=== PATIENT | male | born 1980 | race American Indian/Alaskan Native ===

== ENCOUNTER 2017-08-21 10:48 | Inpatient (IN) | payer OTHER ==
[2017-08-21] MEDS ORDERED: Sodium Chloride 0.9% 1,000 ML IV SCH (12:00)
--- NOTE | 2017-08-21 13:14 | EDM.PDOC ---
ED HPI GENERAL MEDICAL PROBLEM - General Chief Complaint: Behavioral/Psych Stated Complaint: CHEST PAIN Time Seen by Provider: 08/21/17 13:07 Source of Information: Reports: Patient History Limitations: Reports: No Limitations - History of Present Illness INITIAL COMMENTS - FREE TEXT/NARRATIVE: c/o palpitations anxious, pt reports he drinks a gallon of vodka mixed 1/2 and 1/2 with koolaid daily, family member reports he has not been drinking in past 7d altho he had one drink last night no pain, no sob - Related Data Allergies Allergy/AdvReac Type Severity Reaction Status Date / Time Penicillins Allergy Cannot Verified 08/21/17 11:09 Remember Home Meds: Home Meds . [Unable to Verify Home Med List] 08/21/17 [History] ED ROS GENERAL - Review of Systems Review Of Systems: See Below Constitutional: Denies: Fever, Chills HEENT: Reports: No Symptoms Respiratory: Reports: No Symptoms Cardiovascular: Reports: No Symptoms Endocrine: Reports: No Symptoms GI/Abdominal: Reports: No Symptoms : Reports: No Symptoms Musculoskeletal: Reports: No Symptoms Skin: Reports: No Symptoms Neurological: Reports: Paresthesia, Tingling, Tremors Psychiatric: Reports: Anxiety, Confusion Hematologic/Lymphatic: Reports: No Symptoms Immunologic: Reports: No Symptoms ED EXAM, GENERAL - Physical Exam Exam: See Below Exam Limited By: No Limitations General Appearance: Alert, WD/WN, Anxious, Other (quite anxious, restless, initial HR 115 dec'd to 102 after fluids) Eye Exam: Bilateral Eye: Normal Inspection, PERRL Head: Atraumatic, Normocephalic Neck: Normal Inspection, Supple, Non-Tender, Full Range of Motion Respiratory/Chest: No Respiratory Distress, Lungs Clear, Normal Breath Sounds, No Accessory Muscle Use, Chest Non-Tender Cardiovascular: No Edema, No Gallop, No JVD, No Rub, Other GI/Abdominal: Normal Bowel Sounds, Soft, Non-Tender, No Distention Back Exam: Normal Inspection, Full Range of Motion, NT Extremities: Normal Inspection, Normal Range of Motion, Non-Tender Neurological: Alert, Normal Gait, No Motor/Sensory Deficits, Other ( intermittent tremors) Psychiatric: Anxious Skin Exam: Warm, Dry, Intact, Normal Color, No Rash Lymphatic: No Adenopathy Course - Vital Signs Last Recorded V/S: Last Vital Signs Temp 36.2 C 08/21/17 11:12 Pulse 97 08/21/17 11:12 Resp 16 08/21/17 11:12 BP 159/79 H 08/21/17 11:12 Pulse Ox 100 08/21/17 11:12 - Orders/Labs/Meds Orders: Active Orders 24 hr Category Date Time Status DRUG SCREEN, URINE ALERE [URCHEM] Stat Lab 08/21/17 13:25 Received UA W/MICROSCOPIC [URIN] Stat Lab 08/21/17 13:25 Received Potassium Chloride [Klor-Con M20] Med 08/21/17 13:36 Once 40 meq PO ONETIME ONE Sodium Chloride 0.9% [Normal Saline] 1,000 ml Med 08/21/17 13:36 Ordered IV .BOLUS Sodium Chloride 0.9% [Normal Saline] 1,000 ml Med 08/21/17 12:00 Ordered IV ASDIRECTED EKG 12 Lead [EK] Routine Ther 08/21/17 11:59 Ordered Medication Orders Sodium Chloride (Normal Saline) 1,000 mls @ 999 mls/hr IV ASDIRECTED [facility] Labs: Laboratory Tests 08/21/17 08/21/17 08/21/17 Range/Units 12:15 12:15 12:15 WBC 6.4 (4.5-12.0) X10-3/uL RBC 4.83 (4.30-5.75) x10(6)uL Hgb 15.6 H (11.5-15.5) g/dL Hct 45.6 (30.0-51.3) % MCV 94.6 (80-96) fL MCH 32.4 (27.7-33.6) pg MCHC 34.2 (32.2-35.4) g/dL RDW 13.5 (11.5-15.5) % Plt Count 85 L (125-369) X10(3)uL MPV 7.3 L (7.4-10.4) fL Neut % (Auto) 68.8 (46-82) % Lymph % (Auto) 17.7 (13-37) % Greenlee % (Auto) 11.4 (4-12) % Eos % (Auto) 1 (1.0-5.0) % Baso % (Auto) 1 (0-2) % Neut # (Auto) 4.5 (1.6-8.3) # Lymph # (Auto) 1.1 (0.6-5.0) # Greenlee # (Auto) 0.7 (0.0-1.3) # Eos # (Auto) 0.0 (0.0-0.8) # Baso # (Auto) 0.1 (0.0-0.2) # Sodium 130 L (135-145) mmol/L Potassium 2.9 L (3.5-5.3) mmol/L Chloride 88 L* (100-110) mmol/L Carbon Dioxide 29 (21-32) mmol/L BUN 15 (7-18) mg/dL Creatinine 0.9 (0.70-1.30) mg/dL Est Cr Clr Drug Dosing TNP Estimated GFR (MDRD) > 60 (>60) BUN/Creatinine Ratio 16.7 (9-20) Glucose 108 (80-116) mg/dL Calcium 9.7 (8.6-10.2) mg/dL Magnesium 1.6 L (1.8-2.5) mg/dL Total Bilirubin 1.7 H (0.1-1.3) mg/dL AST 116 H (5-25) IU/L ALT 121 H (12-36) U/L Alkaline Phosphatase 128 H (56-112) IU/L Troponin I < 0.017 L (<0.017-0.056) ng/mL C-Reactive Protein 0.5 (0.5-0.9) mg/dL Total Protein 7.9 (6.0-8.0) g/dL Albumin 3.8 (3.5-5.2) g/dL Globulin 4.1 g/dL Albumin/Globulin Ratio 0.9 Ethyl Alcohol (<0.03) % 08/21/17 Range/Units 12:15 WBC (4.5-12.0) X10-3/uL RBC (4.30-5.75) x10(6)uL Hgb (11.5-15.5) g/dL Hct (30.0-51.3) % MCV (80-96) fL MCH (27.7-33.6) pg MCHC (32.2-35.4) g/dL RDW (11.5-15.5) % Plt Count (125-369) X10(3)uL MPV (7.4-10.4) fL Neut % (Auto) (46-82) % Lymph % (Auto) (13-37) % Greenlee % (Auto) (4-12) % Eos % (Auto) (1.0-5.0) % Baso % (Auto) (0-2) % Neut # (Auto) (1.6-8.3) # Lymph # (Auto) (0.6-5.0) # Greenlee # (Auto) (0.0-1.3) # Eos # (Auto) (0.0-0.8) # Baso # (Auto) (0.0-0.2) # Sodium (135-145) mmol/L Potassium (3.5-5.3) mmol/L Chloride (100-110) mmol/L Carbon Dioxide (21-32) mmol/L BUN (7-18) mg/dL Creatinine (0.70-1.30) mg/dL Est Cr Clr Drug Dosing Estimated GFR (MDRD) (>60) BUN/Creatinine Ratio (9-20) Glucose (80-116) mg/dL Calcium (8.6-10.2) mg/dL Magnesium (1.8-2.5) mg/dL Total Bilirubin (0.1-1.3) mg/dL AST (5-25) IU/L ALT (12-36) U/L Alkaline Phosphatase (56-112) IU/L Troponin I (<0.017-0.056) ng/mL C-Reactive Protein (0.5-0.9) mg/dL Total Protein (6.0-8.0) g/dL Albumin (3.5-5.2) g/dL Globulin g/dL Albumin/Globulin Ratio Ethyl Alcohol < 0.03 (<0.03) % Meds: Medications Generic Name Dose Route Start Last Admin Trade Name Freq PRN Reason Stop Dose Admin Sodium Chloride 1,000 mls @ 999 mls/hr 08/21/17 12:00 Normal Saline IV ASDIRECTED VALERIE - Radiology Interpretation Free Text/Narrative:: labs reviewed, pt meets medical criteria for admission - Re-Assessments/Exams Free Text/Narrative Re-Assessment/Exam: 08/21/17 13:37 d/w Dr Krystle Castanon Departure - Departure Time of Disposition: 13:16 Disposition: Admitted As Inpatient 68 Condition: Good Clinical Impression: Alcohol withdrawal syndrome, Alcohol abuse, Hyponatremia, Hypokalemia, Hypomagnesemia, Dehydration, Prolonged Q-T interval on ECG, Delirium, Occasional tremors - Discharge Information Referrals: PCP,None [Primary Care Provider] - Forms: ED Department Discharge - My Orders Last 24 Hours: My Active Orders 08/21/17 11:59 EKG 12 Lead [EK] Routine 08/21/17 12:00 Sodium Chloride 0.9% [Normal Saline] 1,000 ml IV ASDIRECTED 08/21/17 13:25 DRUG SCREEN, URINE ALERE [URCHEM] Stat UA W/MICROSCOPIC [URIN] Stat 08/21/17 13:36 Potassium Chloride [Klor-Con M20] 40 meq PO ONETIME ONE Sodium Chloride 0.9% [Normal Saline] 1,000 ml IV .BOLUS - Assessment/Plan Last 24 Hours: My Active Orders 08/21/17 11:59 EKG 12 Lead [EK] Routine 08/21/17 12:00 Sodium Chloride 0.9% [Normal Saline] 1,000 ml IV ASDIRECTED 08/21/17 13:25 DRUG SCREEN, URINE ALERE [URCHEM] Stat UA W/MICROSCOPIC [URIN] Stat 08/21/17 13:36 Potassium Chloride [Klor-Con M20] 40 meq PO ONETIME ONE Sodium Chloride 0.9% [Normal Saline] 1,000 ml IV .BOLUS
[2017-08-21] MEDS ORDERED: Potassium Chloride 20 MEQ Tab.ER PO ONE (13:36)
[2017-08-21] MEDS ORDERED: Sodium Chloride 0.9% 1,000 ML IV ONE (13:36)
[2017-08-21] MEDS ORDERED: LORazepam 1 MG Tab PO ONE (14:00)
[2017-08-21] MEDS ORDERED: Acetaminophen 325 MG Tab PO PRN (15:14)
[2017-08-21] MEDS ORDERED: Docusate Sodium 100 MG Cap PO PRN (15:14)
[2017-08-21] MEDS ORDERED: Promethazine 25 MG Tab PO PRN (15:14)
[2017-08-21] MEDS ORDERED: Magnesium Oxide 400 MG Tab PO SCH (15:30)
[2017-08-21] MEDS ORDERED: Nicotine 14 MG/24 Hr Patch TRDERM SCH (15:30)
[2017-08-21] MEDS ORDERED: Nicotine 21 MG/24 Hr Patch TRDERM SCH (15:38)
[2017-08-21] MEDS: Sodium Chloride 0.9% 10 ML Syringe FLUSH PRN ×4 (16:06→23:19)
[2017-08-21] MEDS: Nicotine 21 MG/24 Hr Patch TRDERM SCH (16:08)
[2017-08-21] MEDS: Thiamine 100 MG Tab PO SCH (16:14)
[2017-08-21] MEDS: Folic Acid 1 MG Tab PO SCH (16:14)
[2017-08-21] MEDS: Pantoprazole 40 MG Tab.CR PO SCH (16:14)
[2017-08-21] MEDS ORDERED: FLU Vacc QS 2017-18 (36mos UP)/PF 60 MCG/0.5 ML Syringe IM ONE (17:15)
[2017-08-21] MEDS: LORazepam 1 MG Tab PO SCH ×5 (18:19→21:02)
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
[2017-08-21] MEDS: Metoprolol Succinate 25 MG Tab.ER PO SCH (20:06)
[2017-08-21] MEDS ORDERED: diphenhydrAMINE 50 MG/ML SDV IVPUSH ONE (22:48)
[2017-08-21] MEDS ORDERED: LORazepam 2 MG/ML SDV IVPUSH PRN (22:48)
[2017-08-21] MEDS: LORazepam 2 MG/ML SDV IVPUSH PRN (23:03)
[2017-08-22] MEDS: LORazepam 2 MG/ML SDV IVPUSH PRN ×16 (00:06→22:59)
[2017-08-22] MEDS ORDERED: Haloperidol Lactate 5 MG/ML SDV IM ONE (00:40)
[2017-08-22] MEDS ORDERED: LORazepam 20 MG in Dextrose 5% in Water 90 ML IV SCH ×2 (00:45)
[2017-08-22] MEDS ORDERED: OLANZapine 10 MG Vial IM STA (00:49)
[2017-08-22] MEDS ORDERED: LORazepam 2 MG/ML SDV IM ONE (02:22)
[2017-08-22] MEDS: Sodium Chloride 0.9% 2,000 ML IV ONE ×2 (03:16→04:24)
[2017-08-22] MEDS: Sodium Chloride 0.9% 10 ML Syringe FLUSH PRN ×14 (05:31→23:00)
--- NOTE | 2017-08-22 07:56 | PCM.PN ---
- General Info Date of Service: 08/22/17 Subjective Update: The patient is a 36-year-old male currently on hospital day #2 for acute alcohol withdrawal. Last drink was early yesterday morning so just over 24 hours out. He had a rough night. Very agitated and confused. Became quite tachycardic. Received Haldol, Benadryl, 2 L normal saline, and multiple doses of Ativan. Ultimately soft restraints were applied and the patient is awake and restrained this morning. He is disoriented and appears to be hallucinating, but he is calm and able to respond to soothing techniques by myself and the nurse. Had a dose of Zyprexa as well. Has had 12 mg Ativan IV, 2 mg PO and 2 mg IM for total of 16 mg in the last 24 hours. - Patient Data Vitals - Most Recent: Last Vital Signs Temp 36.7 C 08/22/17 05:00 Pulse 122 H 08/22/17 05:00 Resp 20 08/22/17 05:00 BP 155/99 H 08/22/17 05:00 Pulse Ox 99 08/22/17 05:00 Weight - Most Recent: 63.14 kg I&O - Last 24 Hours: Intake & Output 08/21/17 08/22/17 08/22/17 22:59 06:59 14:59 Intake Total 2550 2100 Balance 2550 2100 Lab Results Last 24 Hours: Laboratory Results - last 24 hr 08/22/17 08/22/17 08/22/17 Range/Units 06:20 06:20 06:20 WBC 7.2 (4.5-12.0) X10-3/uL RBC 3.74 L (4.30-5.75) x10(6)uL Hgb 12.1 D (11.5-15.5) g/dL Hct 35.4 D (30.0-51.3) % MCV 94.5 (80-96) fL MCH 32.3 (27.7-33.6) pg MCHC 34.1 (32.2-35.4) g/dL RDW 14.2 (11.5-15.5) % Plt Count 81 L (125-369) X10(3)uL MPV 7.6 (7.4-10.4) fL Neut % (Auto) 66.4 (46-82) % Lymph % (Auto) 17.8 (13-37) % [place] % (Auto) 14.1 H (4-12) % Eos % (Auto) 1 (1.0-5.0) % Baso % (Auto) 1 (0-2) % Neut # (Auto) 4.8 (1.6-8.3) # Lymph # (Auto) 1.3 (0.6-5.0) # [place] # (Auto) 1.0 (0.0-1.3) # Eos # (Auto) 0.1 (0.0-0.8) # Baso # (Auto) 0.0 (0.0-0.2) # PT 10.5 (8.7-11.1) INR 1.04 (0.89-1.13) APTT 25.9 (24.4-33.2) SECONDS Sodium 141 D (135-145) mmol/L Potassium 2.9 L (3.5-5.3) mmol/L Chloride 105 D (100-110) mmol/L Carbon Dioxide 24 (21-32) mmol/L BUN 13 (7-18) mg/dL Creatinine 0.7 (0.70-1.30) mg/dL Est Cr Clr Drug Dosing 132.79 mL/min Estimated GFR (MDRD) > 60 (>60) BUN/Creatinine Ratio 18.6 (9-20) Glucose 76 L (80-116) mg/dL Calcium 8.1 L (8.6-10.2) mg/dL Phosphorus 2.3 L (2.6-4.6) mg/dL Magnesium 1.6 L (1.8-2.5) mg/dL Total Bilirubin 0.9 (0.1-1.3) mg/dL AST 73 H D (5-25) IU/L ALT 84 H D (12-36) U/L Alkaline Phosphatase 96 (56-112) IU/L Total Protein 6.0 (6.0-8.0) g/dL Albumin 3.0 L (3.5-5.2) g/dL Globulin 3.0 g/dL Albumin/Globulin Ratio 1.0 Med Orders - Current: Current Medications Acetaminophen (Tylenol) 650 mg PO Q4H PRN PRN Reason: Pain (Mild 1-3)/fever Docusate Sodium (Colace) 100 mg PO BID PRN PRN Reason: Constipation Folic Acid (Folic Acid) 1 mg PO DAILY [facility] Last Admin: 08/21/17 16:14 Dose: 1 mg Sodium Chloride (Normal Saline) 1,000 mls @ 999 mls/hr IV ASDIRECTED VALERIE Last Admin: 08/21/17 12:45 Dose: 999 mls/hr Lorazepam (Ativan) 0 mg PO ASDIRECTED VALERIE PRN Reason: Protocol Last Admin: 08/21/17 21:02 Dose: 1 mg Lorazepam (Ativan) 1 - 3 mg IVPUSH Q1H PRN PRN Reason: Anxiety Last Admin: 08/22/17 07:42 Dose: 2 mg Magnesium Oxide (Magnesium Oxide) 400 mg PO BID [facility] Metoprolol Succinate (Toprol Xl) 25 mg PO BEDTIME [facility] Last Admin: 08/21/17 20:06 Dose: 25 mg Multivitamins/Minerals/Vitamin C (Tab-A-Odilia) 1 tab PO DAILY [facility] Nicotine (Habitrol) 21 mg TRDERM Q24H [facility] Last Admin: 08/21/17 16:08 Dose: 21 mg Pantoprazole Sodium (Protonix) 40 mg PO DAILY [facility] Last Admin: 08/21/17 16:14 Dose: 40 mg Potassium Chloride (Klor-Con M20) 20 meq PO TID [facility] Potassium Phosphate (K-Phos Original) 500 mg PO DAILY [facility] Promethazine HCl (Phenergan) 25 mg PO Q6H PRN PRN Reason: nausea, able to take PO Sodium Chloride (Saline Flush) 10 ml FLUSH ASDIRECTED PRN PRN Reason: Keep Vein Open Last Admin: 08/22/17 06:03 Dose: 10 ml Thiamine HCl (Vitamin B-1) 100 mg PO DAILY [facility] Last Admin: 08/21/17 16:14 Dose: 100 mg Discontinued Medications Diphenhydramine HCl (Benadryl) 50 mg IVPUSH ONETIME ONE Stop: 08/21/17 22:49 Last Admin: 08/21/17 23:51 Dose: 50 mg Haloperidol Lactate (Haldol) 5 mg IM ONETIME ONE Stop: 08/22/17 00:41 Last Admin: 08/22/17 00:44 Dose: 5 mg Sodium Chloride (Normal Saline) 1,000 mls @ 999 mls/hr IV .BOLUS ONE Stop: 08/21/17 14:36 Last Admin: 08/21/17 13:45 Dose: 999 mls/hr Lorazepam 20 mg/ Dextrose/ (Water) 100 mls @ 2.5 mls/hr IV TITRATE VALERIE; 0.5 MG/ HR PRN Reason: Protocol Sodium Chloride (Normal Saline) 2,000 mls @ 999 mls/hr IV .BOLUS ONE Stop: 08/22/17 05:08 Last Admin: 08/22/17 04:24 Dose: 999 mls/hr Influenza Virus Vaccine (Pharmacy To Dose - Influenza Vaccine) 1 each IM ONETIME ONE Stop: 08/21/17 17:14 Influenza Virus Vaccine (Fluzone Quad [id number]) 60 mcg IM .ONCE ONE Stop: 08/21/17 17:16 Lorazepam (Ativan) 1 mg PO ONETIME ONE Stop: 08/21/17 14:01 Last Admin: 08/21/17 14:00 Dose: 1 mg Lorazepam (Ativan) 1 mg IVPUSH Q1H PRN PRN Reason: Anxiety Lorazepam (Ativan) 2 mg IM ONETIME ONE Stop: 08/22/17 02:23 Last Admin: 08/22/17 02:34 Dose: 2 mg Magnesium Oxide (Magnesium Oxide) 400 mg PO DAILY [facility] Last Admin: 08/21/17 16:14 Dose: 400 mg Nicotine (Habitrol) 21 mg TRDERM DAILY [facility] Last Admin: 08/21/17 18:10 Dose: Not Given Olanzapine (Zyprexa) 5 mg IM ONETIME STA Stop: 08/22/17 00:50 Last Admin: 08/22/17 01:21 Dose: 5 mg Potassium Chloride (Klor-Con M20) 40 meq PO ONETIME ONE Stop: 08/21/17 13:37 Last Admin: 08/21/17 13:50 Dose: 40 meq - Exam General: Alert, Mild Distress (Patient is diaphoretic, muttering about his family, able to follow commands but only for short period of time.) HEENT: Pupils Equal, Pupils Reactive Neck: Supple Lungs: Clear to Auscultation, Normal Respiratory Effort Cardiovascular: Regular Rhythm, No Murmurs, Tachycardia GI/Abdominal Exam: Normal Bowel Sounds, Soft, No Distention Back Exam: Normal Inspection Extremities: No Pedal Edema Psy/Mental Status: Anxious, Agitated, Hallucinations, Withdrawal Symptoms EKG INTERPRETATION EKG Interpretation Comments: Telemetry shows sinus tachycardia. - Problem List & Annotations (1) Alcohol withdrawal syndrome SNOMED Code(s): 417016406 Code(s): F10.239 - ALCOHOL DEPENDENCE WITH WITHDRAWAL, UNSPECIFIED Status: Acute Current Visit: Yes Annotation/Comment:: Moderate detox symptoms with hallucinations, agitation, delirium tremens. Patient is in ICU, soft restraints , one-on-one nursing. Continue CIWA protocol. Ativan, Haldol as needed. (2) Hypokalemia SNOMED Code(s): 46213195 Code(s): E87.6 - HYPOKALEMIA Status: Acute Current Visit: Yes Annotation/Comment:: Replace by mouth. (3) Hypertension SNOMED Code(s): 01800586 Code(s): I10 - ESSENTIAL (PRIMARY) HYPERTENSION Status: Acute Current Visit: Yes Annotation/Comment:: Continue metoprolol succinate 25 mg by mouth daily. Continue treatment for withdrawal symptoms. (4) Hypomagnesemia SNOMED Code(s): 908078835 Code(s): E83.42 - HYPOMAGNESEMIA Status: Acute Current Visit: Yes Annotation/Comment:: Replace by mouth. (5) Hyponatremia SNOMED Code(s): 46313605 Code(s): E87.1 - HYPO-OSMOLALITY AND HYPONATREMIA Status: Acute Current Visit: Yes Annotation/Comment:: Resolved. (6) Hypophosphatemia SNOMED Code(s): 8488630 Code(s): E83.39 - OTHER DISORDERS OF PHOSPHORUS METABOLISM Status: Acute Current Visit: Yes Annotation/Comment:: Replace by mouth as able. (7) Chronic alcohol dependence, continuous SNOMED Code(s): 515298803 Code(s): F10.20 - ALCOHOL DEPENDENCE, UNCOMPLICATED Status: Acute Current Visit: Yes Annotation/Comment:: front services agent to consult regarding long-term placement. - Problem List Review Problem List Initiated/Reviewed/Updated: Yes - My Orders Last 24 Hours: My Active Orders 08/21/17 15:14 Height and Weight [RC] 06 Consult to Pin Setter [CONS] Routine Acetaminophen [Tylenol] 650 mg PO Q4H PRN Docusate Sodium [Colace] 100 mg PO BID PRN Promethazine [Phenergan] 25 mg PO Q6H PRN Sodium Chloride 0.9% [Saline Flush] 10 ml FLUSH ASDIRECTED PRN Anticoagulation Contraindications VTE [AST] Per Unit Routine Saline Lock Insert [OM.PC] Routine 08/21/17 15:16 Cardiac Monitoring [RC] 08,16,00 Intake and Output [RC] 06,14,22 08/21/17 15:17 Notify Provider Vital Signs [RC] ASDIRECTED Sequential Compression Device [OM.PC] Per Unit Routine 08/21/17 15:21 Assess Neurological Status [RC] ASDIRECTED CIWAA Assessment [RC] Q1H Seizure Precautions [OM.PC] Routine 08/21/17 15:22 Notify Provider [RC] PRN 08/21/17 15:30 Folic Acid 1 mg PO DAILY LORazepam [Ativan] See Protocol PO ASDIRECTED Pantoprazole [ProTONIX] 40 mg PO DAILY Thiamine [Vitamin B-1] 100 mg PO DAILY 08/21/17 16:00 Nicotine [Habitrol] 21 mg TRDERM Q24H 08/21/17 21:00 Metoprolol Succinate [Toprol XL] 25 mg PO BEDTIME 08/22/17 09:00 Magnesium Oxide 400 mg PO BID Multivitamins [Tab-A-Odilia] 1 tab PO DAILY Potassium Chloride [Klor-Con M20] 20 meq PO TID Potassium Phosphate,Monobasic [K-Phos Original] 500 mg PO DAILY 08/23/17 05:11 CBC WITH AUTO DIFF [HEME] AM COMPREHENSIVE METABOLIC PN,CMP [CHEM] AM MAGNESIUM [CHEM] AM PHOSPHORUS [CHEM] AM 08/24/17 05:11 CBC WITH AUTO DIFF [HEME] AM COMPREHENSIVE METABOLIC PN,CMP [CHEM] AM MAGNESIUM [CHEM] AM PHOSPHORUS [CHEM] AM 08/25/17 05:11 CBC WITH AUTO DIFF [HEME] AM COMPREHENSIVE METABOLIC PN,CMP [CHEM] AM MAGNESIUM [CHEM] AM PHOSPHORUS [CHEM] AM - Plan Plan:: CODE STATUS discussed with patient on admission and the patient is a full code.
[2017-08-22] MEDS: Folic Acid 1 MG Tab PO SCH (08:28)
[2017-08-22] MEDS: Magnesium Oxide 400 MG Tab PO SCH ×2 (08:29→20:04)
[2017-08-22] MEDS: Pantoprazole 40 MG Tab.CR PO SCH (08:30)
[2017-08-22] MEDS: Multivitamin Tab PO SCH (08:30)
[2017-08-22] MEDS: Thiamine 100 MG Tab PO SCH (08:31)
[2017-08-22] MEDS: Potassium Chloride 20 MEQ Tab.ER PO SCH ×3 (08:46→20:04)
[2017-08-22] MEDS ORDERED: Potassium Phosphate,Monobasic 500 MG Tab.Solu PO SCH (09:00)
[2017-08-22] MEDS: Nicotine 21 MG/24 Hr Patch TRDERM SCH (16:15)
[2017-08-22] MEDS: Erythromycin Base 0.5% Ophth Oint 1 GM Tube EYEBOTH SCH ×2 (17:29→20:03)
[2017-08-22] MEDS: Metoprolol Succinate 25 MG Tab.ER PO SCH (20:04)
[2017-08-23] MEDS: LORazepam 2 MG/ML SDV IVPUSH PRN ×4 (00:10→03:05)
[2017-08-23] MEDS: Sodium Chloride 0.9% 10 ML Syringe FLUSH PRN ×3 (00:10→03:06)
[2017-08-23] MEDS: Folic Acid 1 MG Tab PO SCH (08:22)
[2017-08-23] MEDS: Potassium Chloride 20 MEQ Tab.ER PO SCH ×4 (08:23→21:42)
[2017-08-23] MEDS: Thiamine 100 MG Tab PO SCH (08:24)
[2017-08-23] MEDS: Multivitamin Tab PO SCH (08:24)
[2017-08-23] MEDS: Magnesium Oxide 400 MG Tab PO SCH (08:24)
[2017-08-23] MEDS: Pantoprazole 40 MG Tab.CR PO SCH (08:24)
[2017-08-23] MEDS: Erythromycin Base 0.5% Ophth Oint 3.5 GM Tube EYEBOTH SCH ×4 (08:24→21:41)
--- NOTE | 2017-08-23 09:26 | PCM.PN ---
- General Info Date of Service: 08/23/17 Subjective Update: Patient is a 36-year-old male currently on hospital day #3 for acute alcohol withdrawal. Hallucinations and agitation somewhat improved overnight. He had a total of 32 mg of Ativan in the last 24 hours. Heart rate had come down as has his blood pressure and he rested well for most of the night. He is still disoriented to time person and place although he was able at some point told the nurse he was in the hospital in [place]. He had a couple episodes early this morning of heart rates down into the 40s with a sinus bradycardia. They were short-lived and I did check an EKG this morning which showed sinus rhythm with a rate of 87, QTc interval 485, no ST elevation or depression, no T- wave inversion, and no significant change from prior other than the decreased rate. - Patient Data Vitals - Most Recent: Last Vital Signs Temp 36.4 C 08/23/17 03:00 Pulse 72 08/23/17 06:05 Resp 18 08/23/17 06:05 BP 121/73 08/23/17 06:05 Pulse Ox 99 08/23/17 06:05 Weight - Most Recent: 60.192 kg I&O - Last 24 Hours: Intake & Output 08/22/17 08/23/17 08/23/17 22:59 06:59 14:59 Intake Total 150 125 Balance 150 125 Lab Results Last 24 Hours: Laboratory Results - last 24 hr 08/23/17 08/23/17 Range/Units 06:07 06:07 WBC 5.1 (4.5-12.0) X10-3/uL RBC 3.85 L (4.30-5.75) x10(6)uL Hgb 12.6 (11.5-15.5) g/dL Hct 36.6 (30.0-51.3) % MCV 95.2 (80-96) fL MCH 32.7 (27.7-33.6) pg MCHC 34.4 (32.2-35.4) g/dL RDW 13.9 (11.5-15.5) % Plt Count 117 L (125-369) X10(3)uL MPV 6.5 L (7.4-10.4) fL Neut % (Auto) 62.9 (46-82) % Lymph % (Auto) 20.2 (13-37) % [place] % (Auto) 12.9 H (4-12) % Eos % (Auto) 3 (1.0-5.0) % Baso % (Auto) 1 (0-2) % Neut # (Auto) 3.2 (1.6-8.3) # Lymph # (Auto) 1.0 (0.6-5.0) # [place] # (Auto) 0.7 (0.0-1.3) # Eos # (Auto) 0.1 (0.0-0.8) # Baso # (Auto) 0.1 (0.0-0.2) # Sodium 143 (135-145) mmol/L Potassium 2.8 L* (3.5-5.3) mmol/L Chloride 102 (100-110) mmol/L Carbon Dioxide 25 (21-32) mmol/L BUN 12 (7-18) mg/dL Creatinine 0.7 (0.70-1.30) mg/dL Est Cr Clr Drug Dosing 126.59 mL/min Estimated GFR (MDRD) > 60 (>60) BUN/Creatinine Ratio 17.1 (9-20) Glucose 64 L (80-116) mg/dL Calcium 8.6 (8.6-10.2) mg/dL Phosphorus 5.7 H (2.6-4.6) mg/dL Magnesium 1.9 (1.8-2.5) mg/dL Total Bilirubin 0.9 (0.1-1.3) mg/dL AST 79 H (5-25) IU/L ALT 87 H (12-36) U/L Alkaline Phosphatase 87 (56-112) IU/L Total Protein 6.6 (6.0-8.0) g/dL Albumin 3.2 L (3.5-5.2) g/dL Globulin 3.4 g/dL Albumin/Globulin Ratio 0.9 Med Orders - Current: Current Medications Acetaminophen (Tylenol) 650 mg PO Q4H PRN PRN Reason: Pain (Mild 1-3)/fever Docusate Sodium (Colace) 100 mg PO BID PRN PRN Reason: Constipation Erythromycin (Erythromycin 0.5% Ophth Oint) 0 gm EYEBOTH QID [facility] Last Admin: 08/23/17 08:24 Dose: 1 strip Folic Acid (Folic Acid) 1 mg PO DAILY [facility] Last Admin: 08/23/17 08:22 Dose: 1 mg Sodium Chloride (Normal Saline) 1,000 mls @ 999 mls/hr IV ASDIRECTED [facility] Last Admin: 08/21/17 12:45 Dose: 999 mls/hr Lorazepam (Ativan) 0 mg PO ASDIRECTED VALERIE PRN Reason: Protocol Last Admin: 08/21/17 21:02 Dose: 1 mg Lorazepam (Ativan) 1 - 3 mg IVPUSH Q1H PRN PRN Reason: Anxiety Last Admin: 08/23/17 03:05 Dose: 2 mg Magnesium Oxide (Magnesium Oxide) 400 mg PO DAILY [facility] Last Admin: 08/23/17 08:24 Dose: 400 mg Metoprolol Succinate (Toprol Xl) 25 mg PO BEDTIME [facility] Last Admin: 08/22/17 20:04 Dose: 25 mg Multivitamins/Minerals/Vitamin C (Tab-A-Odilia) 1 tab PO DAILY [facility] Last Admin: 08/23/17 08:24 Dose: 1 tab Nicotine (Habitrol) 21 mg TRDERM Q24H [facility] Last Admin: 08/22/17 16:15 Dose: 21 mg Pantoprazole Sodium (Protonix) 40 mg PO DAILY [facility] Last Admin: 08/23/17 08:24 Dose: 40 mg Potassium Chloride (Klor-Con M20) 40 meq PO QID [facility] Last Admin: 08/23/17 08:23 Dose: 40 meq Promethazine HCl (Phenergan) 25 mg PO Q6H PRN PRN Reason: nausea, able to take PO Sodium Chloride (Saline Flush) 10 ml FLUSH ASDIRECTED PRN PRN Reason: Keep Vein Open Last Admin: 08/23/17 03:06 Dose: 10 ml Thiamine HCl (Vitamin B-1) 100 mg PO DAILY [facility] Last Admin: 08/23/17 08:24 Dose: 100 mg Discontinued Medications Diphenhydramine HCl (Benadryl) 50 mg IVPUSH ONETIME ONE Stop: 08/21/17 22:49 Last Admin: 08/21/17 23:51 Dose: 50 mg Erythromycin (Erythromycin 0.5% Ophth Oint) 0 gm EYEBOTH QID [facility] Last Admin: 08/22/17 20:03 Dose: 1 strip Haloperidol Lactate (Haldol) 5 mg IM ONETIME ONE Stop: 08/22/17 00:41 Last Admin: 08/22/17 00:44 Dose: 5 mg Sodium Chloride (Normal Saline) 1,000 mls @ 999 mls/hr IV .BOLUS ONE Stop: 08/21/17 14:36 Last Admin: 08/21/17 13:45 Dose: 999 mls/hr Lorazepam 20 mg/ Dextrose/ (Water) 100 mls @ 2.5 mls/hr IV TITRATE VALERIE; 0.5 MG/ HR PRN Reason: Protocol Sodium Chloride (Normal Saline) 2,000 mls @ 999 mls/hr IV .BOLUS ONE Stop: 08/22/17 05:08 Last Admin: 08/22/17 04:24 Dose: 999 mls/hr Influenza Virus Vaccine (Pharmacy To Dose - Influenza Vaccine) 1 each IM ONETIME ONE Stop: 08/21/17 17:14 Influenza Virus Vaccine (Fluzone Quad [id number]) 60 mcg IM .ONCE ONE Stop: 08/21/17 17:16 Lorazepam (Ativan) 1 mg PO ONETIME ONE Stop: 08/21/17 14:01 Last Admin: 08/21/17 14:00 Dose: 1 mg Lorazepam (Ativan) 1 mg IVPUSH Q1H PRN PRN Reason: Anxiety Lorazepam (Ativan) 2 mg IM ONETIME ONE Stop: 08/22/17 02:23 Last Admin: 08/22/17 02:34 Dose: 2 mg Magnesium Oxide (Magnesium Oxide) 400 mg PO DAILY [facility] Last Admin: 08/21/17 16:14 Dose: 400 mg Magnesium Oxide (Magnesium Oxide) 400 mg PO BID [facility] Last Admin: 08/22/17 20:04 Dose: 400 mg Nicotine (Habitrol) 21 mg TRDERM DAILY [facility] Last Admin: 08/21/17 18:10 Dose: Not Given Olanzapine (Zyprexa) 5 mg IM ONETIME STA Stop: 08/22/17 00:50 Last Admin: 08/22/17 01:21 Dose: 5 mg Potassium Chloride (Klor-Con M20) 40 meq PO ONETIME ONE Stop: 08/21/17 13:37 Last Admin: 08/21/17 13:50 Dose: 40 meq Potassium Chloride (Klor-Con M20) 20 meq PO TID [facility] Last Admin: 08/22/17 20:04 Dose: 20 meq Potassium Phosphate (K-Phos Original) 500 mg PO DAILY [facility] Last Admin: 08/22/17 08:46 Dose: 500 mg - Exam General: Cooperative (Resting comfortably. Rouses easily but mutters incoherently with questioning.) HEENT: Pupils Equal, Pupils Reactive (Matter on the eyelids bilaterally which is currently being treated with erythromycin ointment for bacterial conjunctivitis.) Neck: Supple Lungs: Clear to Auscultation, Normal Respiratory Effort Cardiovascular: Regular Rate, Regular Rhythm, No Murmurs (Becomes tachycardic with activity. With agitation in the 140s to 150s sinus tach.) GI/Abdominal Exam: Normal Bowel Sounds, Soft, Non-Tender, No Distention Back Exam: Normal Inspection Extremities: Normal Inspection, No Pedal Edema - Problem List & Annotations (1) Alcohol withdrawal syndrome SNOMED Code(s): 121765419 Code(s): F10.239 - ALCOHOL DEPENDENCE WITH WITHDRAWAL, UNSPECIFIED Status: Acute Current Visit: Yes Annotation/Comment:: Moderate detox symptoms with hallucinations, agitation, delirium tremens. Patient is in ICU, soft restraints , one-on-one nursing. Continue CIWA protocol. Ativan, Haldol as needed. (2) Hypokalemia SNOMED Code(s): 94245244 Code(s): E87.6 - HYPOKALEMIA Status: Acute Current Visit: Yes Annotation/Comment:: Replace by mouth. (3) Hypertension SNOMED Code(s): 84819145 Code(s): I10 - ESSENTIAL (PRIMARY) HYPERTENSION Status: Acute Current Visit: Yes Annotation/Comment:: Continue metoprolol succinate 25 mg by mouth daily. Continue treatment for withdrawal symptoms. (4) Hypomagnesemia SNOMED Code(s): 606973112 Code(s): E83.42 - HYPOMAGNESEMIA Status: Acute Current Visit: Yes Annotation/Comment:: Replace by mouth. (5) Hyponatremia SNOMED Code(s): 77509127 Code(s): E87.1 - HYPO-OSMOLALITY AND HYPONATREMIA Status: Acute Current Visit: Yes Annotation/Comment:: Resolved. (6) Hypophosphatemia SNOMED Code(s): 3170123 Code(s): E83.39 - OTHER DISORDERS OF PHOSPHORUS METABOLISM Status: Acute Current Visit: Yes Annotation/Comment:: Resolved. (7) Chronic alcohol dependence, continuous SNOMED Code(s): 116890121 Code(s): F10.20 - ALCOHOL DEPENDENCE, UNCOMPLICATED Status: Acute Current Visit: Yes Annotation/Comment:: data services developer working on detox placement. - Problem List Review Problem List Initiated/Reviewed/Updated: Yes - My Orders Last 24 Hours: My Active Orders 08/22/17 08:50 Restraint/S VIOL/SD Continue 18 - Older [OM.PC] .4 HOURS 08/22/17 09:00 Multivitamins [Tab-A-Odilia] 1 tab PO DAILY 08/22/17 12:50 Restraint/S VIOL/SD Continue 18 - Older [OM.PC] .4 HOURS 08/22/17 16:52 Restraint/S VIOL/SD Continue 18 - Older [OM.PC] .4 HOURS 08/23/17 07:43 EKG 12 Lead [EK] Stat 08/23/17 09:00 Erythromycin Base [Erythromycin 0.5% Ophth Oint] 0 gm EYEBOTH QID Magnesium Oxide 400 mg PO DAILY Potassium Chloride [Klor-Con M20] 40 meq PO QID 08/24/17 05:11 CBC WITH AUTO DIFF [HEME] AM COMPREHENSIVE METABOLIC PN,CMP [CHEM] AM MAGNESIUM [CHEM] AM PHOSPHORUS [CHEM] AM 08/25/17 05:11 CBC WITH AUTO DIFF [HEME] AM COMPREHENSIVE METABOLIC PN,CMP [CHEM] AM MAGNESIUM [CHEM] AM PHOSPHORUS [CHEM] AM - Plan Plan:: CODE STATUS discussed with patient on admission and the patient is a full code.
[2017-08-23] MEDS: LORazepam 1 MG Tab PO SCH ×2 (11:32→17:44)
[2017-08-23] MEDS: Nicotine 21 MG/24 Hr Patch TRDERM SCH (15:29)
[2017-08-23] MEDS: Metoprolol Succinate 25 MG Tab.ER PO SCH (21:50)
[2017-08-24] MEDS: LORazepam 1 MG Tab PO SCH ×3 (07:29→21:22)
--- NOTE | 2017-08-24 08:57 | PCM.PN ---
- General Info Date of Service: 08/24/17 Subjective Update: Julius feels better this morning, he needed 2 doses of oral lorazepam yesterday. He still has tremors but denies any nausea vomiting or hallucinations. Is interested in inpatient alcohol treatment - Review of Systems Pulmonary: Reports: No Symptoms Cardiovascular: Reports: No Symptoms Gastrointestinal: Reports: No Symptoms - Patient Data Vitals - Most Recent: Last Vital Signs Temp 97.4 F 08/24/17 06:31 Pulse 76 08/23/17 15:36 Resp 18 08/24/17 06:31 BP 112/52 L 08/24/17 06:31 Pulse Ox 99 08/24/17 06:31 Weight - Most Recent: 60.101 kg I&O - Last 24 Hours: Intake & Output 08/23/17 08/24/17 08/24/17 22:59 06:59 14:59 Intake Total 300 Balance 300 Lab Results Last 24 Hours: Laboratory Results - last 24 hr 08/24/17 08/24/17 Range/Units 06:05 06:05 WBC 4.9 (4.5-12.0) X10-3/uL RBC 3.94 L (4.30-5.75) x10(6)uL Hgb 13.0 (11.5-15.5) g/dL Hct 38.0 (30.0-51.3) % MCV 96.4 H (80-96) fL MCH 33.1 (27.7-33.6) pg MCHC 34.4 (32.2-35.4) g/dL RDW 14.4 (11.5-15.5) % Plt Count 156 (125-369) X10(3)uL MPV 6.6 L (7.4-10.4) fL Neut % (Auto) 53.0 (46-82) % Lymph % (Auto) 28.7 (13-37) % [place] % (Auto) 14.1 H (4-12) % Eos % (Auto) 3 (1.0-5.0) % Baso % (Auto) 1 (0-2) % Neut # (Auto) 2.6 (1.6-8.3) # Lymph # (Auto) 1.4 (0.6-5.0) # [place] # (Auto) 0.7 (0.0-1.3) # Eos # (Auto) 0.1 (0.0-0.8) # Baso # (Auto) 0.1 (0.0-0.2) # Sodium 144 (135-145) mmol/L Potassium 4.4 D (3.5-5.3) mmol/L Chloride 109 D (100-110) mmol/L Carbon Dioxide 27 (21-32) mmol/L BUN 15 (7-18) mg/dL Creatinine 0.7 (0.70-1.30) mg/dL Est Cr Clr Drug Dosing 126.40 mL/min Estimated GFR (MDRD) > 60 (>60) BUN/Creatinine Ratio 21.4 H (9-20) Glucose 96 (80-116) mg/dL Calcium 8.8 (8.6-10.2) mg/dL Phosphorus 4.0 (2.6-4.6) mg/dL Magnesium 2.3 (1.8-2.5) mg/dL Total Bilirubin 0.8 (0.1-1.3) mg/dL AST 75 H (5-25) IU/L ALT 94 H (12-36) U/L Alkaline Phosphatase 84 (56-112) IU/L Total Protein 6.3 (6.0-8.0) g/dL Albumin 3.0 L (3.5-5.2) g/dL Globulin 3.3 g/dL Albumin/Globulin Ratio 0.9 Med Orders - Current: Current Medications Acetaminophen (Tylenol) 650 mg PO Q4H PRN PRN Reason: Pain (Mild 1-3)/fever Docusate Sodium (Colace) 100 mg PO BID PRN PRN Reason: Constipation Erythromycin (Erythromycin 0.5% Ophth Oint) 0 gm EYEBOTH QID [facility] Last Admin: 08/23/17 21:41 Dose: 1 strip Folic Acid (Folic Acid) 1 mg PO DAILY [facility] Last Admin: 08/23/17 08:22 Dose: 1 mg Sodium Chloride (Normal Saline) 1,000 mls @ 999 mls/hr IV ASDIRECTED [facility] Last Admin: 08/21/17 12:45 Dose: 999 mls/hr Lorazepam (Ativan) 0 mg PO ASDIRECTED [facility] PRN Reason: Protocol Last Admin: 08/24/17 07:29 Dose: 1 mg Lorazepam (Ativan) 1 - 3 mg IVPUSH Q1H PRN PRN Reason: Anxiety Last Admin: 08/23/17 03:05 Dose: 2 mg Magnesium Oxide (Magnesium Oxide) 400 mg PO DAILY [facility] Last Admin: 08/23/17 08:24 Dose: 400 mg Metoprolol Succinate (Toprol Xl) 25 mg PO BEDTIME [facility] Last Admin: 08/23/17 21:50 Dose: Not Given Multivitamins/Minerals/Vitamin C (Tab-A-Od[place]) 1 tab PO DAILY [facility] Last Admin: 08/23/17 08:24 Dose: 1 tab Nicotine (Habitrol) 21 mg TRDERM Q24H [facility] Last Admin: 08/23/17 15:29 Dose: 21 mg Pantoprazole Sodium (Protonix) 40 mg PO DAILY [facility] Last Admin: 08/23/17 08:24 Dose: 40 mg Potassium Chloride (Klor-Con M20) 40 meq PO QID [facility] Last Admin: 08/23/17 21:42 Dose: 40 meq Promethazine HCl (Phenergan) 25 mg PO Q6H PRN PRN Reason: nausea, able to take PO Sodium Chloride (Saline Flush) 10 ml FLUSH ASDIRECTED PRN PRN Reason: Keep Vein Open Last Admin: 08/23/17 03:06 Dose: 10 ml Thiamine HCl (Vitamin B-1) 100 mg PO DAILY [facility] Last Admin: 08/23/17 08:24 Dose: 100 mg Discontinued Medications Diphenhydramine HCl (Benadryl) 50 mg IVPUSH ONETIME ONE Stop: 08/21/17 22:49 Last Admin: 08/21/17 23:51 Dose: 50 mg Erythromycin (Erythromycin 0.5% Ophth Oint) 0 gm EYEBOTH QID [facility] Last Admin: 08/22/17 20:03 Dose: 1 strip Haloperidol Lactate (Haldol) 5 mg IM ONETIME ONE Stop: 08/22/17 00:41 Last Admin: 08/22/17 00:44 Dose: 5 mg Sodium Chloride (Normal Saline) 1,000 mls @ 999 mls/hr IV .BOLUS ONE Stop: 08/21/17 14:36 Last Admin: 08/21/17 13:45 Dose: 999 mls/hr Lorazepam 20 mg/ Dextrose/ (Water) 100 mls @ 2.5 mls/hr IV TITRATE [facility]; 0.5 MG/ HR PRN Reason: Protocol Sodium Chloride (Normal Saline) 2,000 mls @ 999 mls/hr IV .BOLUS ONE Stop: 08/22/17 05:08 Last Admin: 08/22/17 04:24 Dose: 999 mls/hr Influenza Virus Vaccine (Pharmacy To Dose - Influenza Vaccine) 1 each IM ONETIME ONE Stop: 08/21/17 17:14 Influenza Virus Vaccine (Fluzone Quad [id number]) 60 mcg IM .ONCE ONE Stop: 08/21/17 17:16 Lorazepam (Ativan) 1 mg PO ONETIME ONE Stop: 08/21/17 14:01 Last Admin: 08/21/17 14:00 Dose: 1 mg Lorazepam (Ativan) 1 mg IVPUSH Q1H PRN PRN Reason: Anxiety Lorazepam (Ativan) 2 mg IM ONETIME ONE Stop: 08/22/17 02:23 Last Admin: 08/22/17 02:34 Dose: 2 mg Magnesium Oxide (Magnesium Oxide) 400 mg PO DAILY [facility] Last Admin: 08/21/17 16:14 Dose: 400 mg Magnesium Oxide (Magnesium Oxide) 400 mg PO BID [facility] Last Admin: 08/22/17 20:04 Dose: 400 mg Nicotine (Habitrol) 21 mg TRDERM DAILY [facility] Last Admin: 08/21/17 18:10 Dose: Not Given Olanzapine (Zyprexa) 5 mg IM ONETIME STA Stop: 08/22/17 00:50 Last Admin: 08/22/17 01:21 Dose: 5 mg Potassium Chloride (Klor-Con M20) 40 meq PO ONETIME ONE Stop: 08/21/17 13:37 Last Admin: 08/21/17 13:50 Dose: 40 meq Potassium Chloride (Klor-Con M20) 20 meq PO TID [facility] Last Admin: 08/22/17 20:04 Dose: 20 meq Potassium Phosphate (K-Phos Original) 500 mg PO DAILY [facility] Last Admin: 08/22/17 08:46 Dose: 500 mg - Exam Quality Assessment: No: Supplemental Oxygen General: Alert, Oriented, Cooperative, No Acute Distress HEENT: Pupils Equal Neck: Supple Lungs: Clear to Auscultation Cardiovascular: Regular Rate Neurological: No New Focal Deficit Psy/Mental Status: Alert, Depressed, Withdrawal Symptoms. 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 - Problem List Review Problem List Initiated/Reviewed/Updated: Yes - Plan Plan:: I spoke with him this morning, and landed on expresses momentarily interest in alcohol inpatient treatment. Will work with social director today to see if we can get him a place. Meantime I recommend oral lorazepam when necessary for mild withdrawal symptoms
[2017-08-24] MEDS: Thiamine 100 MG Tab PO SCH (09:36)
[2017-08-24] MEDS: Folic Acid 1 MG Tab PO SCH (09:36)
[2017-08-24] MEDS: Pantoprazole 40 MG Tab.CR PO SCH (09:36)
[2017-08-24] MEDS: Multivitamin Tab PO SCH (09:36)
[2017-08-24] MEDS: Potassium Chloride 20 MEQ Tab.ER PO SCH ×3 (09:36→16:03)
[2017-08-24] MEDS: Erythromycin Base 0.5% Ophth Oint 3.5 GM Tube EYEBOTH SCH ×4 (09:36→21:22)
[2017-08-24] MEDS: Magnesium Oxide 400 MG Tab PO SCH (09:36)
[2017-08-24] MEDS: Nicotine 21 MG/24 Hr Patch TRDERM SCH (15:59)
[2017-08-25] MEDS: Thiamine 100 MG Tab PO SCH (08:17)
[2017-08-25] MEDS: Pantoprazole 40 MG Tab.CR PO SCH (08:17)
[2017-08-25] MEDS: Folic Acid 1 MG Tab PO SCH (08:17)
[2017-08-25] MEDS: LORazepam 1 MG Tab PO SCH ×2 (08:17→13:20)
[2017-08-25] MEDS: Erythromycin Base 0.5% Ophth Oint 3.5 GM Tube EYEBOTH SCH ×4 (08:17→20:48)
[2017-08-25] MEDS: Multivitamin Tab PO SCH (08:17)
[2017-08-25] MEDS: Magnesium Oxide 400 MG Tab PO SCH (08:17)
--- NOTE | 2017-08-25 09:31 | PCM.PN ---
- General Info Date of Service: 08/25/17 Subjective Update: Julius feels better this morning, he needed 2 doses of oral lorazepam yesterday. He still has tremors but denies any nausea vomiting or hallucinations. Is interested in inpatient alcohol treatment - Review of Systems General: Reports: No Symptoms HEENT: Reports: No Symptoms Pulmonary: Reports: No Symptoms Cardiovascular: Reports: No Symptoms Gastrointestinal: Reports: No Symptoms - Patient Data Vitals - Most Recent: Last Vital Signs Temp 97.8 F 08/24/17 22:00 Pulse 69 08/24/17 22:00 Resp 17 08/24/17 22:00 BP 144/103 H 08/24/17 22:00 Pulse Ox 100 08/24/17 22:00 Weight - Most Recent: 59.148 kg Lab Results Last 24 Hours: Laboratory Results - last 24 hr 08/25/17 08/25/17 Range/Units 06:15 06:15 WBC 4.2 L (4.5-12.0) X10-3/uL RBC 3.84 L (4.30-5.75) x10(6)uL Hgb 12.7 (11.5-15.5) g/dL Hct 37.3 (30.0-51.3) % MCV 97.0 H (80-96) fL MCH 33.1 (27.7-33.6) pg MCHC 34.2 (32.2-35.4) g/dL RDW 15.1 (11.5-15.5) % Plt Count 180 (125-369) X10(3)uL MPV 7.1 L (7.4-10.4) fL Add Manual Diff Yes Neutrophils % (Manual) 54 (46-82) % Lymphocytes % (Manual) 33 (13-37) % Monocytes % (Manual) 11 (4-12) % Eosinophils % (Manual) 2 (0-5) % Sodium 142 (135-145) mmol/L Potassium 4.5 (3.5-5.3) mmol/L Chloride 109 (100-110) mmol/L Carbon Dioxide 26 (21-32) mmol/L BUN 9 (7-18) mg/dL Creatinine 0.7 (0.70-1.30) mg/dL Est Cr Clr Drug Dosing 124.40 mL/min Estimated GFR (MDRD) > 60 (>60) BUN/Creatinine Ratio 12.9 (9-20) Glucose 108 (80-116) mg/dL Calcium 8.8 (8.6-10.2) mg/dL Phosphorus 4.1 (2.6-4.6) mg/dL Magnesium 2.0 (1.8-2.5) mg/dL Total Bilirubin 0.6 (0.1-1.3) mg/dL AST 85 H D (5-25) IU/L ALT 118 H D (12-36) U/L Alkaline Phosphatase 88 (56-112) IU/L Total Protein 6.2 (6.0-8.0) g/dL Albumin 2.9 L (3.5-5.2) g/dL Globulin 3.3 g/dL Albumin/Globulin Ratio 0.9 Med Orders - Current: Current Medications Acetaminophen (Tylenol) 650 mg PO Q4H PRN PRN Reason: Pain (Mild 1-3)/fever Docusate Sodium (Colace) 100 mg PO BID PRN PRN Reason: Constipation Erythromycin (Erythromycin 0.5% Ophth Oint) 0 gm EYEBOTH QID [facility] Last Admin: 08/25/17 08:17 Dose: 1 strip Folic Acid (Folic Acid) 1 mg PO DAILY [facility] Last Admin: 08/25/17 08:17 Dose: 1 mg Lorazepam (Ativan) 0 mg PO ASDIRECTED [facility] PRN Reason: Protocol Last Admin: 08/25/17 08:17 Dose: 1 mg Lorazepam (Ativan) 1 - 3 mg IVPUSH Q1H PRN PRN Reason: Anxiety Last Admin: 08/23/17 03:05 Dose: 2 mg Magnesium Oxide (Magnesium Oxide) 400 mg PO DAILY [facility] Last Admin: 08/25/17 08:17 Dose: 400 mg Multivitamins/Minerals/Vitamin C (Tab-A-[place]) 1 tab PO DAILY [facility] Last Admin: 08/25/17 08:17 Dose: 1 tab Nicotine (Habitrol) 21 mg TRDERM Q24H [facility] Last Admin: 08/24/17 15:59 Dose: 21 mg Pantoprazole Sodium (Protonix) 40 mg PO DAILY [facility] Last Admin: 08/25/17 08:17 Dose: 40 mg Promethazine HCl (Phenergan) 25 mg PO Q6H PRN PRN Reason: nausea, able to take PO Sodium Chloride (Saline Flush) 10 ml FLUSH ASDIRECTED PRN PRN Reason: Keep Vein Open Last Admin: 08/23/17 03:06 Dose: 10 ml Thiamine HCl (Vitamin B-1) 100 mg PO DAILY [facility] Last Admin: 08/25/17 08:17 Dose: 100 mg Discontinued Medications Diphenhydramine HCl (Benadryl) 50 mg IVPUSH ONETIME ONE Stop: 08/21/17 22:49 Last Admin: 08/21/17 23:51 Dose: 50 mg Erythromycin (Erythromycin 0.5% Ophth Oint) 0 gm EYEBOTH QID [facility] Last Admin: 08/22/17 20:03 Dose: 1 strip Haloperidol Lactate (Haldol) 5 mg IM ONETIME ONE Stop: 08/22/17 00:41 Last Admin: 08/22/17 00:44 Dose: 5 mg Sodium Chloride (Normal Saline) 1,000 mls @ 999 mls/hr IV ASDIRECTED [facility] Last Admin: 08/21/17 12:45 Dose: 999 mls/hr Sodium Chloride (Normal Saline) 1,000 mls @ 999 mls/hr IV .BOLUS ONE Stop: 08/21/17 14:36 Last Admin: 08/21/17 13:45 Dose: 999 mls/hr Lorazepam 20 mg/ Dextrose/ (Water) 100 mls @ 2.5 mls/hr IV TITRATE [facility]; 0.5 MG/ HR PRN Reason: Protocol Sodium Chloride (Normal Saline) 2,000 mls @ 999 mls/hr IV .BOLUS ONE Stop: 08/22/17 05:08 Last Admin: 08/22/17 04:24 Dose: 999 mls/hr Influenza Virus Vaccine (Pharmacy To Dose - Influenza Vaccine) 1 each IM ONETIME ONE Stop: 08/21/17 17:14 Influenza Virus Vaccine (Fluzone Quad [id number]) 60 mcg IM .ONCE ONE Stop: 08/21/17 17:16 Last Admin: 08/24/17 13:46 Dose: 60 mcg Lorazepam (Ativan) 1 mg PO ONETIME ONE Stop: 08/21/17 14:01 Last Admin: 08/21/17 14:00 Dose: 1 mg Lorazepam (Ativan) 1 mg IVPUSH Q1H PRN PRN Reason: Anxiety Lorazepam (Ativan) 2 mg IM ONETIME ONE Stop: 08/22/17 02:23 Last Admin: 08/22/17 02:34 Dose: 2 mg Magnesium Oxide (Magnesium Oxide) 400 mg PO DAILY [facility] Last Admin: 08/21/17 16:14 Dose: 400 mg Magnesium Oxide (Magnesium Oxide) 400 mg PO BID [facility] Last Admin: 08/22/17 20:04 Dose: 400 mg Metoprolol Succinate (Toprol Xl) 25 mg PO BEDTIME [facility] Last Admin: 08/23/17 21:50 Dose: Not Given Nicotine (Habitrol) 21 mg TRDERM DAILY [facility] Last Admin: 08/21/17 18:10 Dose: Not Given Olanzapine (Zyprexa) 5 mg IM ONETIME ST[facility] Stop: 08/22/17 00:50 Last Admin: 08/22/17 01:21 Dose: 5 mg Potassium Chloride (Klor-Con M20) 40 meq PO ONETIME ONE Stop: 08/21/17 13:37 Last Admin: 08/21/17 13:50 Dose: 40 meq Potassium Chloride (Klor-Con M20) 20 meq PO TID [facility] Last Admin: 08/22/17 20:04 Dose: 20 meq Potassium Chloride (Klor-Con M20) 40 meq PO QID [facility] Last Admin: 08/24/17 16:03 Dose: 40 meq Potassium Phosphate (K-Phos Original) 500 mg PO DAILY [facility] Last Admin: 08/22/17 08:46 Dose: 500 mg - Exam Quality Assessment: No: Supplemental Oxygen General: Alert, Oriented HEENT: Pupils Equal, Pupils Reactive, EOMI, Mucous Membr. 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 - Problem List Review Problem List Initiated/Reviewed/Updated: Yes - Plan Plan:: Julius is stable. Is waiting for admission to an inpatient facility on Sunday. Meantime discontinue every 4 hour vital signs, encourage ambulation transfer out of ICU.And DC VTE prophylaxis. Continue lorazepam when necessary orally.
[2017-08-25] MEDS: Nicotine 21 MG/24 Hr Patch TRDERM SCH (16:35)
[2017-08-25] MEDS: LORazepam 1 MG Tab PO PRN (20:46)
[2017-08-26] MEDS: LORazepam 1 MG Tab PO PRN ×3 (07:36→20:58)
--- NOTE | 2017-08-26 08:37 | PCM.PN ---
- General Info Date of Service: 08/26/17 Subjective Update: Julius feels better this morning, he needed 2 doses of oral lorazepam yesterday. He still has tremors but denies any nausea vomiting or hallucinations. Is interested in inpatient alcohol treatment - Review of Systems HEENT: Reports: No Symptoms Pulmonary: Reports: No Symptoms Cardiovascular: Reports: No Symptoms - Patient Data Vitals - Most Recent: Last Vital Signs Temp 97.5 F 08/26/17 05:20 Pulse 82 08/26/17 05:20 Resp 14 08/26/17 05:20 BP 129/82 08/26/17 05:20 Pulse Ox 100 08/26/17 05:20 Weight - Most Recent: 59.148 kg Med Orders - Current: Current Medications Acetaminophen (Tylenol) 650 mg PO Q4H PRN PRN Reason: Pain (Mild 1-3)/fever Docusate Sodium (Colace) 100 mg PO BID PRN PRN Reason: Constipation Erythromycin (Erythromycin 0.5% Ophth Oint) 0 gm EYEBOTH QID [facility] Last Admin: 08/25/17 20:48 Dose: 1 strip Folic Acid (Folic Acid) 1 mg PO DAILY [facility] Last Admin: 08/25/17 08:17 Dose: 1 mg Lorazepam (Ativan) 1 mg PO Q6H PRN PRN Reason: Anxiety Last Admin: 08/26/17 07:36 Dose: 1 mg Magnesium Oxide (Magnesium Oxide) 400 mg PO DAILY [facility] Last Admin: 08/25/17 08:17 Dose: 400 mg Multivitamins/Minerals/Vitamin C (Tab-A-Odilia) 1 tab PO DAILY [facility] Last Admin: 08/25/17 08:17 Dose: 1 tab Nicotine (Habitrol) 21 mg TRDERM Q24H [facility] Last Admin: 08/25/17 16:35 Dose: 21 mg Pantoprazole Sodium (Protonix) 40 mg PO DAILY [facility] Last Admin: 08/25/17 08:17 Dose: 40 mg Promethazine HCl (Phenergan) 25 mg PO Q6H PRN PRN Reason: nausea, able to take PO Sodium Chloride (Saline Flush) 10 ml FLUSH ASDIRECTED PRN PRN Reason: Keep Vein Open Last Admin: 08/23/17 03:06 Dose: 10 ml Thiamine HCl (Vitamin B-1) 100 mg PO DAILY [facility] Last Admin: 08/25/17 08:17 Dose: 100 mg Discontinued Medications Diphenhydramine HCl (Benadryl) 50 mg IVPUSH ONETIME ONE Stop: 08/21/17 22:49 Last Admin: 08/21/17 23:51 Dose: 50 mg Erythromycin (Erythromycin 0.5% Ophth Oint) 0 gm EYEBOTH QID [facility] Last Admin: 08/22/17 20:03 Dose: 1 strip Haloperidol Lactate (Haldol) 5 mg IM ONETIME ONE Stop: 08/22/17 00:41 Last Admin: 08/22/17 00:44 Dose: 5 mg Sodium Chloride (Normal Saline) 1,000 mls @ 999 mls/hr IV ASDIRECTED [facility] Last Admin: 08/21/17 12:45 Dose: 999 mls/hr Sodium Chloride (Normal Saline) 1,000 mls @ 999 mls/hr IV .BOLUS ONE Stop: 08/21/17 14:36 Last Admin: 08/21/17 13:45 Dose: 999 mls/hr Lorazepam 20 mg/ Dextrose/ (Water) 100 mls @ 2.5 mls/hr IV TITRATE [facility]ERIE; 0.5 MG/ HR PRN Reason: Protocol Sodium Chloride (Normal Saline) 2,000 mls @ 999 mls/hr IV .BOLUS ONE Stop: 08/22/17 05:08 Last Admin: 08/22/17 04:24 Dose: 999 mls/hr Influenza Virus Vaccine (Pharmacy To Dose - Influenza Vaccine) 1 each IM ONETIME ONE Stop: 08/21/17 17:14 Influenza Virus Vaccine (Fluzone Quad [id number]) 60 mcg IM .ONCE ONE Stop: 08/21/17 17:16 Last Admin: 08/24/17 13:46 Dose: 60 mcg Lorazepam (Ativan) 1 mg PO ONETIME ONE Stop: 08/21/17 14:01 Last Admin: 08/21/17 14:00 Dose: 1 mg Lorazepam (Ativan) 0 mg PO ASDIRECTED [facility] PRN Reason: Protocol Last Admin: 08/25/17 13:20 Dose: 1 mg Lorazepam (Ativan) 1 mg IVPUSH Q1H PRN PRN Reason: Anxiety Lorazepam (Ativan) 1 - 3 mg IVPUSH Q1H PRN PRN Reason: Anxiety Last Admin: 08/23/17 03:05 Dose: 2 mg Lorazepam (Ativan) 2 mg IM ONETIME ONE Stop: 08/22/17 02:23 Last Admin: 08/22/17 02:34 Dose: 2 mg Magnesium Oxide (Magnesium Oxide) 400 mg PO DAILY [facility] Last Admin: 08/21/17 16:14 Dose: 400 mg Magnesium Oxide (Magnesium Oxide) 400 mg PO BID [facility] Last Admin: 08/22/17 20:04 Dose: 400 mg Metoprolol Succinate (Toprol Xl) 25 mg PO BEDTIME [facility] Last Admin: 08/23/17 21:50 Dose: Not Given Nicotine (Habitrol) 21 mg TRDERM DAILY [facility] Last Admin: 08/21/17 18:10 Dose: Not Given Olanzapine (Zyprexa) 5 mg IM ONETIME [facility] Stop: 08/22/17 00:50 Last Admin: 08/22/17 01:21 Dose: 5 mg Potassium Chloride (Klor-Con M20) 40 meq PO ONETIME ONE Stop: 08/21/17 13:37 Last Admin: 08/21/17 13:50 Dose: 40 meq Potassium Chloride (Klor-Con M20) 20 meq PO TID [facility] Last Admin: 08/22/17 20:04 Dose: 20 meq Potassium Chloride (Klor-Con M20) 40 meq PO QID [facility] Last Admin: 08/24/17 16:03 Dose: 40 meq Potassium Phosphate (K-Phos Original) 500 mg PO DAILY [facility] Last Admin: 08/22/17 08:46 Dose: 500 mg - Exam General: Alert, Oriented HEENT: Pupils Equal Neck: Supple Lungs: Clear to Auscultation Cardiovascular: Regular Rate Psy/Mental Status: Alert, Normal Affect, Normal Mood - Problem List & Annotations (1) Chronic alcohol dependence, continuous SNOMED Code(s): 731515872 Code(s): F10.20 - ALCOHOL DEPENDENCE, UNCOMPLICATED Status: Acute Current Visit: Yes Annotation/Comment:: being discharged tomorrow - Problem List Review Problem List Initiated/Reviewed/Updated: Yes - My Orders Last 24 Hours: My Active Orders 08/25/17 15:25 LORazepam [Ativan] 1 mg PO Q6H PRN - Plan Plan:: Julius is stable. Is waiting for admission to an inpatient facility on Sunday. Meantime discontinue saline lock. Will do all paperwork tonight so he can leave by 7 am tomorrow
[2017-08-26] MEDS: Erythromycin Base 0.5% Ophth Oint 3.5 GM Tube EYEBOTH SCH ×4 (09:08→20:59)
[2017-08-26] MEDS: Magnesium Oxide 400 MG Tab PO SCH (09:09)
[2017-08-26] MEDS: Pantoprazole 40 MG Tab.CR PO SCH (09:09)
[2017-08-26] MEDS: Folic Acid 1 MG Tab PO SCH (09:09)
[2017-08-26] MEDS: Multivitamin Tab PO SCH (09:10)
[2017-08-26] MEDS: Thiamine 100 MG Tab PO SCH (09:10)
[2017-08-26] MEDS: Nicotine 21 MG/24 Hr Patch TRDERM SCH (16:28)
--- NOTE | 2017-08-26 18:00 | DISCH ---
DISCHARGE DATE: 08/27/2017 REASON FOR ADMISSION: 1. Alcohol intoxication. 2. Alcohol dependence. 3. Hypertension. 4. Scoliosis. BRIEF HISTORY: This is a 36-year-old who was admitted with alcohol withdrawal syndrome with tremors, agitation, anxiety, and elevated blood pressure. Given some thiamine, IV fluids, and admitted to ICU with CIWA scale. He did well with lorazepam, was changed to oral on the . He expressed interest for inpatient treatment for alcohol dependency and a place was found in [place] and he will be discharged tomorrow morning to go there and leave here by 7 in the morning. DISCHARGE MEDICATIONS: None. Please note that I spent less than 30 minutes in the discharge of this patient. /[id number] MARTHA/MARISEL
[2017-08-27] MEDS: LORazepam 1 MG Tab PO PRN (06:51)
== END 2017-08-27 07:45 | disposition other institution (70) | DRG 897 ==
LOC: FB.ED 10:48 → FB.ICU 13:34 → FB.MS 08-24 12:15
PROVIDERS: ADMIT Family Medicine; ATTEND Family Medicine
DX: F10.239 Alcohol dependence with withdrawal, unspecified (principal); E87.1 Hypo-osmolality and hyponatremia; E87.6 Hypokalemia; E83.42 Hypomagnesemia; I10 Essential (primary) hypertension; F17.210 Nicotine dependence, cigarettes, uncomplicated; Y90.0 Blood alcohol level of less than 20 mg/100 ml; R00.2 Palpitations; F41.9 Anxiety disorder, unspecified; E86.0 Dehydration; E83.39 Other disorders of phosphorus metabolism; M41.9 Scoliosis, unspecified; Z88.0 Allergy status to penicillin; Z23 Encounter for immunization; F10.221 Alcohol dependence with intoxication delirium
CPT/HCPCS: 36415; 80053; 80305; 81001; 83735; 84100; 84484; 85025; 85610; 85730; 86140; 90686; 93005; 96360; 96361; 99285; A9270-GY; G0008; G0480; J1200; J1630; J2060; J7040; J7050; S0166